=== PATIENT | female | born 1960 | race Caucasian/White ===

== ENCOUNTER → 2020-06-20 | Outpatient (CLI) | payer MEDICARE ==
[~2020-06-20] MED LIST: DOCUSATE SODIU250 MG PO; HYDROCODON-ACE1 EAC4 PO; IBUPROFEN600 MG PO
[2020-06-20 12:00] LABS: HEMOGLOBIN 13.2 gm/dl (12.3-15.3); RED BLOOD COUNT 4.1 M/UL (4.00-5.10); WHITE BLOOD COUNT 6.9 K/UL (4.5-11.0)
== END ==
LOC: OPSV2 10:58
PROVIDERS: Obstetrics & Gynecology
DX: Z01.818 Encounter for other preprocedural examination (principal); N81.10 Cystocele, unspecified; I49.3 Ventricular premature depolarization; Z01.812 Encounter for preprocedural laboratory examination; Z20.822 Contact with and (suspected) exposure to COVID-19
CPT/HCPCS: 36415; 71046; 81001; 85025; 93005; U0003

== ENCOUNTER 2020-06-24 06:59 | Day surgery (SDC) | payer MEDICARE ==
[~2020-06-24] VITALS: Ht 175.3 cm; Wt 71.2 kg
[2020-06-24] MEDS ORDERED: IBUPROFEN600 MG PO (16:17)
[2020-06-24] MEDS ORDERED: HYDROCODON-ACE1 EAC4 PO (16:17)
[2020-06-24] MEDS ORDERED: DOCUSATE SODIU250 MG PO (16:17)
== END 2020-06-24 18:08 | disposition home or self-care (01) ==
LOC: OR 06:59 → OB 13:52 → OR 18:08
DX: N83.8 Other noninflammatory disorders of ovary, fallopian tube and broad ligament (principal); N88.8 Other specified noninflammatory disorders of cervix uteri; N84.0 Polyp of corpus uteri; N83.312 Acquired atrophy of left ovary; N83.311 Acquired atrophy of right ovary; D25.9 Leiomyoma of uterus, unspecified; N81.10 Cystocele, unspecified; I73.00 Raynaud's syndrome without gangrene; J43.9 Emphysema, unspecified; M19.90 Unspecified osteoarthritis, unspecified site; Z83.3 Family history of diabetes mellitus; Z82.49 Family history of ischemic heart disease and other diseases of the circulatory system; Z80.9 Family history of malignant neoplasm, unspecified; Z98.51 Tubal ligation status
CPT/HCPCS: 84703; C1769; J0690; J1100; J1170; J1885; J2001; J2250; J2405; J2550; J2704; J2710; J3010; J7050; J7120